=== PATIENT | female | born 1995 | race African-American/Black ===

== ENCOUNTER 2018-07-12 15:00 | Inpatient (IN) ==
[2018-07-12] MEDS ORDERED: BUTORPHANOL 1 MG/ML VIAL IV PRN (15:43)
[2018-07-12] MEDS ORDERED: MEPERIDINE 50 MG/1 ML VIAL IV PRN (15:43)
[2018-07-12] MEDS ORDERED: BUTORPHANOL 2 MG/ML VIAL IV PRN (15:43)
[2018-07-12 16:07] LABS: Basophils % 0.6 % (0.0-0.8); Eosinophils % 0.6 % (0.00-10.9); Hematocrit 33.4 VOL% (35.7-47.0); Hemoglobin 10.4 GM/DL (12.0-16.0); Immature Granulocytes % 1.6 %; Lymphocytes # 1.1 10*3/uL (1.4-4.0); Lymphocytes % 16.6 % (21.3-54.2); Mean Corpuscular HGB Conc 31.1 GM/DL (32-36); Mean Corpuscular Hemoglobin 30 PG (27-34); Mean Corpuscular Volume 95.2 FL (87-102); Mean Platelet Volume 11.9 FL (9.6-12.0); Monocytes # 0.5 10*3/uL (0.11-0.8); Monocytes % 8.3 % (1.7-12.7); Neutrophils # 4.6 10*3/uL (1.4-7.4); Neutrophils % 72.3 % (38.7-73.9); Platelet Count 176 T/CUMM (130-400); Red Blood Count 3.51 MC/CUMM (3.8-5.5); Red Cell Distribution Width 14.7 % (9.3-17.3); White Blood Count 6.4 T/CUMM (4-12)
[2018-07-12 16:27] LABS: Alanine Aminotransferase 11 U/L (13-56); Albumin 2.7 G/DL (3.4-5.0); Alkaline Phosphatase 153 U/L (45-117); Aspartate Amino Transferase 15 U/L (0-37); Bilirubin,Total < 0.39 MG/DL (0.2-1.0); Blood Urea Nitrogen 7 MG/DL (7-18); Calcium 8.6 MG/DL (8.5-10.1); Glucose 85 MG/DL (74-106); Osmolality,Calculated 275.4 MOS/KG (273-304); Potassium 3.7 MMOL/L (3.5-5.1); Sodium 140 MMOL/L (136-145); Total Protein 6.7 G/DL (6.4-8.3)
[2018-07-12] MEDS ORDERED: DINOPROSTONE 10 MG VAG.INSERT VAG ONE (17:00)
[2018-07-13] MEDS: LACTATED RINGERS 1,000 ML IV SCH ×4 (00:10→21:08)
[2018-07-13] MEDS: ONDANSETRON 4 MG/2 ML VIAL IV PRN ×2 (00:17→12:37)
[2018-07-13] MEDS ORDERED: OXYTOCIN/LR 20 UNIT/1,000 ML BAG IV SCH (06:00)
[2018-07-13] MEDS ORDERED: LACTATED RINGERS 1,000 ML IV ONE (10:15)
[2018-07-13] MEDS ORDERED: CITRIC ACID/SODIUM CITRATE 30 ML UDCUP PO ONE (10:15)
[2018-07-13] MEDS ORDERED: FAMOTIDINE 20 MG/2 ML VIAL IV ONE (10:15)
[2018-07-13] MEDS ORDERED: NALOXONE 0.4 MG/ML VIAL IV PRN (10:16)
[2018-07-13] MEDS ORDERED: hydrOXYzine HCL 25 MG/1 ML VIAL IM PRN (10:16)
[2018-07-13] MEDS ORDERED: PROMETHAZINE 25 MG/1 ML VIAL IM ONE (10:16)
[2018-07-13] MEDS ORDERED: ePHEDrine 50 MG/ML AMP IV PRN (10:16)
[2018-07-13] MEDS ORDERED: ONDANSETRON 4 MG/2 ML VIAL IV ONE (10:16)
[2018-07-13] MEDS ORDERED: diphenhydrAMINE 50 MG/1 ML VIAL IV PRN ×2 (10:16)
[2018-07-13] MEDS ORDERED: fentaNYL 2 MCG/ROPIV 0.2% EPID 100 ML EPIDURAL SCH (10:30)
[2018-07-13] MEDS ORDERED: PENICILLIN G POTASSIUM INJ 6,000,000 UNIT in SODIUM CHLORIDE 0.9% 100 ML IV ONE (11:00)
[2018-07-13 13:37] LABS: Apearance,Urine CLEAR (Clear); Bilirubin,Urine Negative (Negative); Blood, Urine Negative (Negative); Glucose,Urine (UA) Negative (Negative); Ketones,Urine 80 mg/dL (Negative); Mucus,Urine Occasional /LPF (Occasional); Nitrite,Urine Negative (Negative); Protein,Urine Negative; Squamous Epithelial Cell,Urine Occasional /HPF (0-10); Urine Color Yellow (Yellow); Urine Specific Gravity 1.013 (1.001-1.035); Urine Urobilinogen < 2.0 EU/DL (0.2-1.0); WBC,Urine 1 /HPF (0-6)
[2018-07-13] MEDS ORDERED: ceFAZolin 3,000 MG in SYRINGE 1 EACH IV ONE (15:02)
[2018-07-13] MEDS ORDERED: OXYTOCIN 10 UNIT/ML VIAL ONE (16:33)
[2018-07-13 17:05] LABS: Cord Arterial Blood HCO3 18.3 MMOL/L
[2018-07-13] MEDS ORDERED: MORPHINE 10 MG/10 ML VIAL ONE (17:31)
[2018-07-13] MEDS ORDERED: KETAMINE 500 MG/10 ML VIAL ONE (17:31)
[2018-07-13] MEDS ORDERED: MIDAZOLAM 2 MG/2 ML VIAL ONE (17:31)
[2018-07-13] MEDS ORDERED: SODIUM BICARBONATE 2.4 MEQ/5 ML VIAL ONE (17:32)
[2018-07-13] MEDS ORDERED: LIDOCAINE MPF 2% /EPI 20 ML VIAL ONE (17:32)
[2018-07-13] MEDS ORDERED: PHENYLEPHRINE 1 MG/10 ML SYRINGE IV ONE (17:32)
[2018-07-13] MEDS ORDERED: ONDANSETRON 4 MG/2 ML VIAL ONE (17:32)
[2018-07-13] MEDS ORDERED: HYDROmorphone 2 MG/1 ML VIAL IV SCH (19:00)
[2018-07-13] MEDS ORDERED: HYDROmorphone 2 MG/1 ML VIAL IV PRN (19:01)
[2018-07-13] MEDS ORDERED: MAGNESIUM HYDROXIDE SUSP 30 ML UDCUP PO PRN (20:52)
[2018-07-13] MEDS ORDERED: ACETAMINOPHEN 325 MG TABLET PO PRN (20:52)
[2018-07-13] MEDS ORDERED: RHO(D) IMMUNE GLOBULIN 300 MCG SYRINGE IM ONE (20:52)
[2018-07-13] MEDS ORDERED: SIMETHICONE CHEW 80 MG TABLET PO PRN (20:52)
[2018-07-13] MEDS ORDERED: OXYTOCIN/LR 20 UNIT/1,000 ML BAG IV ONE (20:52)
[2018-07-13] MEDS: DOCUSATE SODIUM 100 MG CAPSULE PO SCH (23:30)
[2018-07-13] MEDS: KETOROLAC 30 MG/1 ML VIAL IV SCH (23:47)
[2018-07-13] MEDS: ceFAZolin 1,000 MG in SYRINGE 1 EACH IV SCH (23:51)
[2018-07-14 01:39] LABS: Basophils % 0.4 % (0.0-0.8); Hematocrit 27.3 VOL% (35.7-47.0); Hemoglobin 8.3 GM/DL (12.0-16.0); Immature Granulocytes % 0.7 %; Immature Granulocytes Absolute 0.07 #; Lymphocytes # 0.9 10*3/uL (1.4-4.0); Lymphocytes % 9.6 % (21.3-54.2); Mean Corpuscular HGB Conc 30.4 GM/DL (32-36); Mean Corpuscular Hemoglobin 30 PG (27-34); Mean Corpuscular Volume 97.8 FL (87-102); Mean Platelet Volume 11.5 FL (9.6-12.0); Monocytes # 0.9 10*3/uL (0.11-0.8); Monocytes % 9.5 % (1.7-12.7); Neutrophils # 7.7 10*3/uL (1.4-7.4); Neutrophils % 79.8 % (38.7-73.9); Platelet Count 146 T/CUMM (130-400); Red Blood Count 2.79 MC/CUMM (3.8-5.5); White Blood Count 9.7 T/CUMM (4-12)
[2018-07-14] MEDS: LACTATED RINGERS 1,000 ML IV SCH (04:54)
[2018-07-14] MEDS: KETOROLAC 30 MG/1 ML VIAL IV SCH ×4 (04:54→16:50)
[2018-07-14 04:58] LABS: Basophils % 0.4 % (0.0-0.8); Eosinophils % 0.1 % (0.00-10.9); Hemoglobin 8.3 GM/DL (12.0-16.0); Immature Granulocytes % 0.8 %; Immature Granulocytes Absolute 0.07 #; Lymphocytes % 11.4 % (21.3-54.2); Mean Corpuscular HGB Conc 30.7 GM/DL (32-36); Mean Corpuscular Hemoglobin 30 PG (27-34); Mean Corpuscular Volume 97.1 FL (87-102); Mean Platelet Volume 12.2 FL (9.6-12.0); Monocytes # 0.9 10*3/uL (0.11-0.8); Monocytes % 10.4 % (1.7-12.7); Neutrophils # 6.6 10*3/uL (1.4-7.4); Neutrophils % 76.9 % (38.7-73.9); Platelet Count 132 T/CUMM (130-400); Red Blood Count 2.78 MC/CUMM (3.8-5.5); White Blood Count 8.6 T/CUMM (4-12)
[2018-07-14] MEDS ORDERED: diphenhydrAMINE CAP 25 MG CAPSULE PO PRN (05:48)
[2018-07-14] MEDS: ceFAZolin 1,000 MG in SYRINGE 1 EACH IV SCH (08:11)
[2018-07-14] MEDS: DOCUSATE SODIUM 100 MG CAPSULE PO SCH ×2 (08:12→21:25)
[2018-07-14] MEDS: METOCLOPRAMIDE 10 MG TABLET PO SCH ×2 (08:13→16:49)
[2018-07-14] MEDS: MULTIVITAMIN (PRENATAL) TABLET PO SCH (09:32)
[2018-07-14] MEDS ORDERED: KETOROLAC 30 MG/1 ML VIAL ONE (16:44)
[2018-07-14] MEDS: IBUPROFEN 800 MG TABLET PO SCH (21:24)
[2018-07-15] MEDS: METOCLOPRAMIDE 10 MG TABLET PO SCH (00:20)
[2018-07-15] MEDS: IBUPROFEN 800 MG TABLET PO SCH (04:54)
[2018-07-15 07:32] VITALS: BP 135/78
[2018-07-15] MEDS: MULTIVITAMIN (PRENATAL) TABLET PO SCH (08:47)
[2018-07-15] MEDS: DOCUSATE SODIUM 100 MG CAPSULE PO SCH (08:48)
[2018-07-15] MEDS ORDERED: ETONOGESTREL 68 MG IMPLANT SUBCUT ONE (09:47)
[2018-07-15] MEDS ORDERED: LIDOCAINE MPF 1% /EPI 30 ML VIAL MISC INJ ONE (09:48)
[2018-07-15] MEDS ORDERED: DIPH/TET/ACEL PERT BOOSTER VACCINE 0.5 ML VIAL IM ONE (09:49)
[2018-07-15] MEDS ORDERED: LIDOCAINE/PRILOCAINE CREAM 5 GM TUBE TOP ONE (10:39)
== END 2018-07-15 12:10 | disposition home or self-care (01) | DRG 540 ==
LOC: N.LDOUT 15:00 → N.LD 15:01 → N.OB 07-13 20:40
PROVIDERS: ADMIT Obstetrics & Gynecology; ATTEND Obstetrics & Gynecology
PROC: LDCSECT (ICD-10-PCS; 2018-07-13 16:00)